=== PATIENT | female | born 1945 | race Caucasian/White ===

== ENCOUNTER 2023-06-15 09:15 | Observation (INO) | payer MEDICARE, BC ==
[2023-06-15] VITALS (40 sets, daily range): BP systolic 129–168; BP diastolic 70–89
[~2023-06-15] VITALS: Ht 157.5 cm; Wt 77.0 kg
[~2023-06-15 09:15] MED LIST: FLUTICASONE50 MCG NAS; LISINOPRIL10 MG PO; LORTAB 7.5 PO; METFORMIN500 MG PO; ZYRTEC10 MG PO
[2023-06-15 10:04] LABS: BASO% 0.6 % (0-3); EOS% 8.3 % (0-8); IMMATURE GRANULOCYTES 0.2 % (0.0-5.0); LYMPH% 36.8 % (15-41); MEAN CELL VOLUME 95.1 fL CALC (80.0-100.0); MEAN CORPUSCULAR HGB 30.4 pG CALC (26.0-32.0); MEAN CORPUSCULAR HGB CONC 31.9 g/dL CAL (32.0-36.0); MONO% 10.9 % (2-13); NEUT# 2.85 thou/uL (2.00-7.15); NEUT% 43.2 % (42-76); RED BLOOD COUNT 4.94 mill/uL (4.20-5.60); RED CELL DISTRI WIDTH 13.3 % (11.5-15.5)
[2023-06-15 10:25] LABS: ALBUMIN 4.5 g/dL (3.2-5.0); ALKALINE PHOSPHATASE 74 u/l (38-126); ANION GAP 12 (6-22 (CALC)); BILIRUBIN, TOTAL 0.4 mg/dL (0.02-1.3); BUN 17 mg/dL (8-23); BUN/CREATININE RATIO 27 (12-20 (CALC)); CALCULATED LDLCHOLESTEROL 81 mg/dL (62-129 (CALC)); CARBON DIOXIDE 26 mmol/l (22-30); CHLORIDE 107 mmol/l (95-108); CHOLESTEROL HDL RATIO 2.8 (<4.4 (CALC)); CREATININE 0.6 mg/dL (0.5-1.0); GFR FOR AFR.AMER. > 60 ML/MIN (>=60 (CALC)); GFR OTHER RACES > 60 ML/MIN (>=60 (CALC)); HDL CHOLESTEROL 53 mg/dL (39.0-59.0); POTASSIUM 3.7 mmol/l (3.5-5.1); SGOT/AST 33 u/l (9-36); SODIUM 142 mmol/l (137-146); TOTAL CHOLESTEROL 150 mg/dl (0-199); TOTAL PROTEIN 8.2 g/dL (6.3-8.2); TOTAL TRIGLYCERIDES 79 mg/dl (0-149); VLDL CHOLESTROL 16 mg/dl (0-48 (CALC))
[2023-06-15 10:30] LABS: PROTHROMBIN TIME 9.8 SECONDS (9.0-12.5)
[2023-06-15] MEDS ORDERED: MONTELUKAST SOD10 MG PO (11:07)
[2023-06-15] MEDS ORDERED: HYDROCHLOROT25 MG PO (11:08)
[2023-06-15] MEDS ORDERED: ENALAPRIL5 MG PO (11:08)
[2023-06-15] MEDS ORDERED: PROVENTIL0.083 % IN (11:09)
[2023-06-15] MEDS ORDERED: BREO ELLIPTA 101 INH (11:09)
[2023-06-15] MEDS ORDERED: ALBUTEROL108 MCG/AC (11:11)
[2023-06-15 20:13] LABS: URINE BILIRUBIN - DIPSTICK Negative (NEGATIVE); URINE BLOOD DIPSTICK Negative (NEGATIVE); URINE GLUCOSE - DIPSTICK Negative (NEGATIVE); URINE KETONE Trace mg/dL (NEGATIVE); URINE LEUK ESTERASE Trace (NEGATIVE); URINE NITRITE - DIPSTICK Negative (Negative); URINE PH 7.5 (4.5-8.0); URINE PROTEIN - DIPSTICK 30 mg/dL (NEG-TRACE)
[2023-06-15 20:14] LABS: URINE COLOR Yellow
[2023-06-15 20:21] LABS: URINE AMORPH SEDIMENT MANY hpf (NONE-FEW); URINE SQUAMOUS EPITHELIAL CELL FEW EPI/hpf (0-FEW)
[2023-06-16] VITALS: BP 137/71
[2023-06-16 04:00] VITALS: BP 132/63
[2023-06-16 05:27] LABS: BASO% 0.3 % (0-3); EOS% 5.2 % (0-8); HEMATOCRIT 42.8 % (37.0-47.0); IMMATURE GRANULOCYTES 0.1 % (0.0-5.0); LYMPH% 26.4 % (15-41); MEAN CELL VOLUME 96.2 fL CALC (80.0-100.0); MEAN CORPUSCULAR HGB 31.5 pG CALC (26.0-32.0); MEAN CORPUSCULAR HGB CONC 32.7 g/dL CAL (32.0-36.0); MONO% 11.2 % (2-13); NEUT# 5.03 thou/uL (2.00-7.15); NEUT% 56.8 % (42-76); RED BLOOD COUNT 4.45 mill/uL (4.20-5.60); RED CELL DISTRI WIDTH 13.2 % (11.5-15.5)
[2023-06-16 05:42] LABS: ALKALINE PHOSPHATASE 64 u/l (38-126); ANION GAP 10 (6-22 (CALC)); BILIRUBIN, TOTAL 0.5 mg/dL (0.02-1.3); BUN 18 mg/dL (8-23); BUN/CREATININE RATIO 26 (12-20 (CALC)); CALCULATED LDLCHOLESTEROL 61 mg/dL (62-129 (CALC)); CARBON DIOXIDE 26 mmol/l (22-30); CHLORIDE 107 mmol/l (95-108); CHOLESTEROL HDL RATIO 2.8 (<4.4 (CALC)); CREATININE 0.7 mg/dL (0.5-1.0); GFR FOR AFR.AMER. > 60 ML/MIN (>=60 (CALC)); GFR OTHER RACES > 60 ML/MIN (>=60 (CALC)); HDL CHOLESTEROL 49 mg/dL (39.0-59.0); MAGNESIUM 2.1 mg/dL (1.6-2.3); POTASSIUM 3.6 mmol/l (3.5-5.1); SGOT/AST 30 u/l (9-36); SODIUM 139 mmol/l (137-146); TOTAL CHOLESTEROL 135 mg/dl (0-199); TOTAL PROTEIN 7.1 g/dL (6.3-8.2); TOTAL TRIGLYCERIDES 127 mg/dl (0-149); VLDL CHOLESTROL 25 mg/dl (0-48 (CALC))
[2023-06-16 07:36] VITALS: BP 159/77
[2023-06-16] MEDS ORDERED: MECLIZINE25 MG PO (09:28)
== END 2023-06-16 11:45 | disposition home or self-care (01) ==
LOC: ED 09:15 → ED-I 11:50 → ED 12:57 → MS2 12:58 → ICU 21:35
PROVIDERS: Emergency Medicine; ADMIT Student in an Organized Health Care Education/Training Program; ATTEND Student in an Organized Health Care Education/Training Program
DX: R42 Dizziness and giddiness (principal); R26.89 Other abnormalities of gait and mobility; I10 Essential (primary) hypertension; E11.9 Type 2 diabetes mellitus without complications; J45.20 Mild intermittent asthma, uncomplicated; Z79.84 Long term (current) use of oral hypoglycemic drugs
CPT/HCPCS: Q9967